=== PATIENT | male | born 1955 | race Caucasian/White ===

== ENCOUNTER 2022-05-18 04:10 | Emergency (ER) | payer MEDICARE, OTHER ==
[2022-05-18 04:51] LABS: ESTIMATED GFR 93 mL/min (>60)
[2022-05-18] MEDS ORDERED: Iopamidol 755 Mg/ML 100 ML Bottle IV ONE (05:05)
== END 2022-05-18 06:07 | disposition home or self-care (01) ==
LOC: FB.ED 04:10
DX: R06.02 Shortness of breath (principal); J44.9 Chronic obstructive pulmonary disease, unspecified; Z88.0 Allergy status to penicillin; Z88.8 Allergy status to other drugs, medicaments and biological substances; Z88.7 Allergy status to serum and vaccine
CPT/HCPCS: 36415; 71260; 80053; 83880; 84484; 85025; 93005; 99285; Q9967

== ENCOUNTER 2022-12-31 21:07 | Emergency (ER) | payer MEDICARE, OTHER ==
[2022-12-31 22:51] LABS: BASOPHILS ABSOLUTE AUTO 0.1 x10-3/uL (0.0-0.3); BASOPHILS PERCENT AUTO 0.9 % (0.3-3.8); EOSINOPHILS ABSOLUTE AUTO 0.2 x10-3/uL (0.0-0.6); EOSINOPHILS PERCENT AUTO 1.8 % (0.1-6.8); HEMATOCRIT 42.8 % (38.3-50.1); HEMOGLOBIN 14.4 g/dL (12.9-17.7); LYMPHOCYTES ABSOLUTE AUTO 1.3 x10-3/uL (0.5-4.5); LYMPHOCYTES PERCENT AUTO 14.8 % (15.8-45.3); MEAN CORPUSCULAR HEMOGLOBIN 29.4 pg (27.0-33.3); MEAN CORPUSCULAR HGB CONC 33.7 g/dL (28.7-35.3); MEAN CORPUSCULAR VOLUME 87.3 fL (80.8-98.7); MEAN PLATELET VOLUME 6.2 fL (6.7-11.0); MONOCYTES ABSOLUTE AUTO 1.4 x10-3/uL (0.0-1.2); MONOCYTES PERCENT AUTO 16.7 % (5.5-15.2); NEUTROPHILS ABSOLUTE AUTO 5.7 x10-3/uL (1.7-6.9); NEUTROPHILS PERCENT AUTO 65.8 % (40.3-71.8); PLATELET COUNT,PLT 318 x10(3)uL (117-477); WHITE BLOOD CELL COUNT,WBC 8.7 x10-3/uL (3.2-10.1)
[2022-12-31 22:55] LABS: BLOOD UREA NITROGEN,BUN 14 mg/dL (7-18); BUN/CREATININE RATIO 15.6 (9-20); CALCIUM 8.9 mg/dL (8.6-10.2); CARBON DIOXIDE,CO2 31 mmol/L (21-32); CHLORIDE,CL 102 mmol/L (100-110); CREATININE 0.9 mg/dL (0.70-1.30); EST CRCL DRUG DOSING (CG) 83.67 mL/min; ESTIMATED GFR 93 mL/min (>60); GLUCOSE RANDOM 103 mg/dL (80-116); POTASSIUM,K 3.7 mmol/L (3.5-5.3); SODIUM,NA 139 mmol/L (135-145)
[2022-12-31 23:01] LABS: A/G RATIO 0.8; ALANINE AMINOTRANSFERASE,ALT 23 U/L (12-36); ALBUMIN 3.2 g/dL (3.2-4.6); ALKALINE PHOSPHATASE 164 IU/L (56-112); AMYLASE 31 U/L (25-115); ASPARTATE AMNIOTRANSFERASE,AST 13 IU/L (5-25); BILIRUBIN TOTAL 0.7 mg/dL (0.1-1.3); PROTEIN TOTAL,TP 7.1 g/dL (6.0-8.0)
[2022-12-31 23:48] LABS: BILIRUBIN,URINE NEGATIVE (NEGATIVE); GLUCOSE,URINE NORMAL (NORMAL); KETONES,URINE NEGATIVE (NEGATIVE); LEUKOCYTE ESTERASE,URINE NEGATIVE (NEGATIVE); NITRITE,URINE NEGATIVE (NEGATIVE); OCCULT BLOOD,URINE NEGATIVE (NEGATIVE); PROTEIN,URINE NEGATIVE (NEGATIVE); UROBILINOGEN,URINE NORMAL (NEGATIVE)
[2022-12-31 23:56] LABS: APPEARANCE,URINE CLEAR (CLEAR); BACTERIA,URINE OCCASIONAL (NS); COLOR,URINE YELLOW (YELLOW); RBC,URINE 0-5 (0-5); SQUAMOUS EPITHELIAL CELLS,UR OCCASIONAL (NS,R,O); WBC,URINE 0-5 (0-5)
[2023-01-01] MEDS ORDERED: Lactulose Soln 10 GM/15 ML 30 ML UD Cup PO ONE (00:25)
[2023-01-01] MEDS ORDERED: Sennosides/Docusate Sodium 50-8.6 MG Tab PO ONE (00:25)
== END 2023-01-01 00:55 | disposition home or self-care (01) ==
LOC: FB.ED 21:07
DX: R10.9 Unspecified abdominal pain (principal); K59.00 Constipation, unspecified; J44.9 Chronic obstructive pulmonary disease, unspecified; F17.210 Nicotine dependence, cigarettes, uncomplicated; Z88.0 Allergy status to penicillin; Z88.7 Allergy status to serum and vaccine; Z88.8 Allergy status to other drugs, medicaments and biological substances; Z79.899 Other long term (current) drug therapy
CPT/HCPCS: 36415; 74176; 80053; 81001; 82150; 83690; 85025; 99283; 99284; A9270-GY

== ENCOUNTER 2023-08-30 20:23 | Emergency (ER) | payer MEDICARE, OTHER | END 2023-08-30 21:17 | disposition home or self-care (01) | LOC: FB.ED 20:23 | DX: M79.672 Pain in left foot (principal); R20.2 Paresthesia of skin; E78.00 Pure hypercholesterolemia, unspecified; F17.200 Nicotine dependence, unspecified, uncomplicated; Z88.0 Allergy status to penicillin; Z88.7 Allergy status to serum and vaccine; Z88.8 Allergy status to other drugs, medicaments and biological substances; Z90.49 Acquired absence of other specified parts of digestive tract; Z79.82 Long term (current) use of aspirin; Z79.899 Other long term (current) drug therapy | CPT/HCPCS: 99283 ==

== ENCOUNTER 2023-09-18 20:11 | Emergency (ER) | payer MEDICARE, OTHER | END 2023-09-18 21:45 | disposition home or self-care (01) | LOC: FB.ED 20:11 | DX: J32.1 Chronic frontal sinusitis (principal); J43.9 Emphysema, unspecified; E78.00 Pure hypercholesterolemia, unspecified; F17.210 Nicotine dependence, cigarettes, uncomplicated; Z90.49 Acquired absence of other specified parts of digestive tract; Z88.0 Allergy status to penicillin; Z88.8 Allergy status to other drugs, medicaments and biological substances; Z88.7 Allergy status to serum and vaccine; Z79.51 Long term (current) use of inhaled steroids; Z79.82 Long term (current) use of aspirin; Z79.899 Other long term (current) drug therapy | CPT/HCPCS: 99283 ==

== ENCOUNTER 2024-10-16 10:43 | Emergency (ER) | payer MEDICARE, OTHER ==
[2024-10-16] MEDS: Hydrocortisone Sodium Succinate 100 MG/2 ML SDV IM STA (12:06)
[2024-10-16] MEDS: Hydrocortisone Sodium Succinate 250 MG/2 ML SDV IM STA (12:08)
[2024-10-16 12:15] VITALS: BP 100/67; PULSE 80
== END 2024-10-16 12:15 | disposition home or self-care (01) ==
LOC: FB.ED 10:43
DX: J18.9 Pneumonia, unspecified organism (principal); J44.9 Chronic obstructive pulmonary disease, unspecified; E78.00 Pure hypercholesterolemia, unspecified; J45.909 Unspecified asthma, uncomplicated; F17.200 Nicotine dependence, unspecified, uncomplicated; Z88.0 Allergy status to penicillin; Z79.899 Other long term (current) drug therapy; Z79.82 Long term (current) use of aspirin; Z90.49 Acquired absence of other specified parts of digestive tract
CPT/HCPCS: 71046; 94640; 96372; 99284; 99285; A9270-GY; J1720

== ENCOUNTER 2024-10-17 14:36 | Emergency (ER) | payer MEDICARE, OTHER | END 2024-10-17 15:10 | disposition home or self-care (01) | LOC: FB.ED 14:36 | DX: J43.9 Emphysema, unspecified (principal); E78.00 Pure hypercholesterolemia, unspecified; Z88.0 Allergy status to penicillin; Z88.7 Allergy status to serum and vaccine; Z88.8 Allergy status to other drugs, medicaments and biological substances; Z79.899 Other long term (current) drug therapy; Z79.82 Long term (current) use of aspirin; Z79.01 Long term (current) use of anticoagulants; Z90.49 Acquired absence of other specified parts of digestive tract | CPT/HCPCS: 99283; 99284 ==

== ENCOUNTER 2024-10-25 23:29 | Emergency (ER) | payer MEDICARE, OTHER ==
[2024-10-25] MEDS: Alum Hydroxide/Mag Hydroxide 15 ML, Lidocaine 2% 15 ML PO ONE (23:52)
== END 2024-10-26 00:47 | disposition home or self-care (01) ==
LOC: FB.ED 23:29
DX: K21.9 Gastro-esophageal reflux disease without esophagitis (principal); E78.00 Pure hypercholesterolemia, unspecified; F17.200 Nicotine dependence, unspecified, uncomplicated; Z88.0 Allergy status to penicillin; Z88.8 Allergy status to other drugs, medicaments and biological substances; Z79.82 Long term (current) use of aspirin; Z79.899 Other long term (current) drug therapy; Z90.49 Acquired absence of other specified parts of digestive tract
CPT/HCPCS: 71045; 99284; A9270-GY

== ENCOUNTER 2024-10-28 16:41 | Emergency (ER) | payer MEDICARE, OTHER | END 2024-10-28 17:33 | disposition home or self-care (01) | LOC: FB.ED 16:41 | DX: J43.9 Emphysema, unspecified (principal); J02.9 Acute pharyngitis, unspecified; E78.00 Pure hypercholesterolemia, unspecified; K21.9 Gastro-esophageal reflux disease without esophagitis; Z88.0 Allergy status to penicillin; Z88.7 Allergy status to serum and vaccine; Z88.8 Allergy status to other drugs, medicaments and biological substances; Z79.82 Long term (current) use of aspirin; Z79.899 Other long term (current) drug therapy; Z79.01 Long term (current) use of anticoagulants; Z90.49 Acquired absence of other specified parts of digestive tract | CPT/HCPCS: 99283 ==

== ENCOUNTER 2024-10-29 20:51 | Emergency (ER) | payer MEDICARE, OTHER ==
[2024-10-29 21:22] LABS: BASOPHILS ABSOLUTE AUTO 0.1 x10-3/uL (0.0-0.3); BASOPHILS PERCENT AUTO 0.8 % (0.3-3.8); EOSINOPHILS ABSOLUTE AUTO 0.1 x10-3/uL (0.0-0.6); EOSINOPHILS PERCENT AUTO 2.0 % (0.1-6.8); LYMPHOCYTES ABSOLUTE AUTO 0.8 x10-3/uL (0.5-4.5); LYMPHOCYTES PERCENT AUTO 11.4 % (15.8-45.3); MEAN PLATELET VOLUME 6.3 fL (6.7-11.0); MONOCYTES ABSOLUTE AUTO 1.0 x10-3/uL (0.0-1.2); MONOCYTES PERCENT AUTO 14.4 % (5.5-15.2); NEUTROPHILS ABSOLUTE AUTO 5.0 x10-3/uL (1.7-6.9); NEUTROPHILS PERCENT AUTO 71.4 % (40.3-71.8); PLATELET COUNT,PLT 343 x10(3)uL (117-477); RED BLOOD CELL COUNT 4.91 x10(6)uL (3.90-5.90); RED CELL DISTRIBUTION WIDTH 14.4 % (12.4-15.0); WHITE BLOOD CELL COUNT,WBC 7.0 x10-3/uL (3.2-10.1)
[2024-10-29 21:26] LABS: BLOOD UREA NITROGEN,BUN 14 mg/dL (7-18); CARBON DIOXIDE,CO2 32 mmol/L (21-32); CHLORIDE,CL 103 mmol/L (100-110); CREATININE 0.9 mg/dL (0.70-1.30); ESTIMATED GFR 92 mL/min (>60); GLUCOSE RANDOM 106 mg/dL (80-116); POTASSIUM,K 3.7 mmol/L (3.5-5.3); SODIUM,NA 139 mmol/L (135-145)
[2024-10-29 21:32] LABS: A/G RATIO 1.2; ALANINE AMINOTRANSFERASE,ALT 24 U/L (12-36); ASPARTATE AMNIOTRANSFERASE,AST 15 IU/L (5-25); BILIRUBIN TOTAL 0.5 mg/dL (0.1-1.3); PROTEIN TOTAL,TP 6.9 g/dL (6.0-8.0)
[2024-10-29 21:39] LABS: PRO B-TYPE NATRIUR PEPT,BNPPRO 58.0 pg/mL (<=125)
[2024-10-29] MEDS: Alum Hydroxide/Mag Hydroxide 15 ML, Lidocaine 2% 15 ML PO ONE (22:35)
== END 2024-10-29 23:38 | disposition home or self-care (01) ==
LOC: FB.ED 20:51
DX: J44.1 Chronic obstructive pulmonary disease with (acute) exacerbation (principal); K21.9 Gastro-esophageal reflux disease without esophagitis; F17.210 Nicotine dependence, cigarettes, uncomplicated; E78.00 Pure hypercholesterolemia, unspecified; Z88.0 Allergy status to penicillin; Z88.1 Allergy status to other antibiotic agents; Z88.8 Allergy status to other drugs, medicaments and biological substances; Z79.82 Long term (current) use of aspirin; Z79.899 Other long term (current) drug therapy; Z79.01 Long term (current) use of anticoagulants; Z90.49 Acquired absence of other specified parts of digestive tract
CPT/HCPCS: 36415; 71046; 74019; 80053; 83690; 83735; 83880; 84484; 85025; 86140; 93005; 99285; A9270-GY

== ENCOUNTER 2024-10-30 10:15 | Emergency (ER) | payer MEDICARE, OTHER ==
[2024-10-30] MEDS: Alum Hydroxide/Mag Hydroxide 15 ML, Lidocaine 2% 15 ML PO ONE (11:28)
== END 2024-10-30 11:40 | disposition home or self-care (01) ==
LOC: FB.ED 10:15
DX: J44.1 Chronic obstructive pulmonary disease with (acute) exacerbation (principal); K21.9 Gastro-esophageal reflux disease without esophagitis; F17.210 Nicotine dependence, cigarettes, uncomplicated; Z88.0 Allergy status to penicillin; Z88.8 Allergy status to other drugs, medicaments and biological substances; Z88.7 Allergy status to serum and vaccine; Z90.49 Acquired absence of other specified parts of digestive tract; Z79.899 Other long term (current) drug therapy; Z79.82 Long term (current) use of aspirin; Z79.51 Long term (current) use of inhaled steroids; Z79.01 Long term (current) use of anticoagulants
CPT/HCPCS: 94640; 99284; A9270

== ENCOUNTER 2024-11-05 09:23 | Emergency (ER) | payer MEDICARE, OTHER | END 2024-11-05 09:50 | disposition home or self-care (01) | LOC: FB.ED 09:23 | DX: J43.9 Emphysema, unspecified (principal); E78.00 Pure hypercholesterolemia, unspecified; Z90.49 Acquired absence of other specified parts of digestive tract; F17.210 Nicotine dependence, cigarettes, uncomplicated; Z88.0 Allergy status to penicillin; Z88.8 Allergy status to other drugs, medicaments and biological substances; Z79.899 Other long term (current) drug therapy; Z79.82 Long term (current) use of aspirin | CPT/HCPCS: 99283; J7512 ==

== ENCOUNTER 2024-11-06 15:40 | Emergency (ER) | payer MEDICARE, OTHER | END 2024-11-06 17:10 | disposition home or self-care (01) | LOC: FB.ED 15:40 | DX: J44.1 Chronic obstructive pulmonary disease with (acute) exacerbation (principal); F17.210 Nicotine dependence, cigarettes, uncomplicated; E78.00 Pure hypercholesterolemia, unspecified; Z88.0 Allergy status to penicillin; Z88.7 Allergy status to serum and vaccine; Z88.8 Allergy status to other drugs, medicaments and biological substances; Z79.899 Other long term (current) drug therapy; Z79.01 Long term (current) use of anticoagulants; Z90.49 Acquired absence of other specified parts of digestive tract | CPT/HCPCS: 99283; A9270-GY ==

== ENCOUNTER 2024-11-11 22:53 | Emergency (ER) | payer MEDICARE, OTHER ==
[2024-11-11 23:37] LABS: BASOPHILS ABSOLUTE AUTO 0.1 x10-3/uL (0.0-0.3); BASOPHILS PERCENT AUTO 0.6 % (0.3-3.8); EOSINOPHILS ABSOLUTE AUTO 0.1 x10-3/uL (0.0-0.6); EOSINOPHILS PERCENT AUTO 0.9 % (0.1-6.8); LYMPHOCYTES ABSOLUTE AUTO 1.3 x10-3/uL (0.5-4.5); LYMPHOCYTES PERCENT AUTO 9.8 % (15.8-45.3); MEAN PLATELET VOLUME 6.2 fL (6.7-11.0); MONOCYTES ABSOLUTE AUTO 1.8 x10-3/uL (0.0-1.2); MONOCYTES PERCENT AUTO 14.2 % (5.5-15.2); NEUTROPHILS ABSOLUTE AUTO 9.7 x10-3/uL (1.7-6.9); NEUTROPHILS PERCENT AUTO 74.5 % (40.3-71.8); PLATELET COUNT,PLT 423 x10(3)uL (117-477); RED BLOOD CELL COUNT 4.65 x10(6)uL (3.90-5.90); RED CELL DISTRIBUTION WIDTH 14.6 % (12.4-15.0); WHITE BLOOD CELL COUNT,WBC 13.0 x10-3/uL (3.2-10.1)
[2024-11-11 23:41] LABS: BLOOD UREA NITROGEN,BUN 18 mg/dL (7-18); CARBON DIOXIDE,CO2 32 mmol/L (21-32); CHLORIDE,CL 104 mmol/L (100-110); CREATININE 0.8 mg/dL (0.70-1.30); ESTIMATED GFR 95 mL/min (>60); GLUCOSE RANDOM 114 mg/dL (80-116); POTASSIUM,K 3.5 mmol/L (3.5-5.3); SODIUM,NA 141 mmol/L (135-145)
[2024-11-11 23:47] LABS: A/G RATIO 0.9; ALANINE AMINOTRANSFERASE,ALT 21 U/L (12-36); ASPARTATE AMNIOTRANSFERASE,AST 10 IU/L (5-25); BILIRUBIN TOTAL 0.5 mg/dL (0.1-1.3); PROTEIN TOTAL,TP 6.3 g/dL (6.0-8.0)
== END 2024-11-12 01:04 | disposition home or self-care (01) ==
LOC: FB.ED 22:53
DX: R10.32 Left lower quadrant pain (principal); J43.9 Emphysema, unspecified; J44.89 Other specified chronic obstructive pulmonary disease; E78.00 Pure hypercholesterolemia, unspecified; K21.9 Gastro-esophageal reflux disease without esophagitis; F17.210 Nicotine dependence, cigarettes, uncomplicated; Z79.899 Other long term (current) drug therapy; Z88.1 Allergy status to other antibiotic agents; Z88.8 Allergy status to other drugs, medicaments and biological substances; Z88.7 Allergy status to serum and vaccine; Z90.49 Acquired absence of other specified parts of digestive tract
CPT/HCPCS: 36415; 74019; 80053; 85025; 86140; 99284; A9270

== ENCOUNTER 2024-12-23 21:48 | Emergency (ER) | payer MEDICARE, OTHER ==
[2024-12-23] MEDS: Ketorolac 30 MG/ML SDV IM ONE (22:32)
== END 2024-12-23 22:42 | disposition home or self-care (01) ==
LOC: SUPCPDRO 21:48 → FB.ED 21:48
DX: M62.830 Muscle spasm of back (principal); R51.9 Headache, unspecified; J44.89 Other specified chronic obstructive pulmonary disease; E78.00 Pure hypercholesterolemia, unspecified; K21.9 Gastro-esophageal reflux disease without esophagitis; F17.200 Nicotine dependence, unspecified, uncomplicated; Z79.01 Long term (current) use of anticoagulants; Z88.0 Allergy status to penicillin; Z88.7 Allergy status to serum and vaccine; Z88.8 Allergy status to other drugs, medicaments and biological substances; Z79.899 Other long term (current) drug therapy; Z79.82 Long term (current) use of aspirin; Z90.49 Acquired absence of other specified parts of digestive tract
CPT/HCPCS: 99283